=== PATIENT | female | born 1985 | race African-American/Black ===

== ENCOUNTER 2017-07-09 20:04 | Emergency (ER) | payer SELFPAY ==
[2017-07-09 20:26] LABS: Bilirubin Negative (Negative); Blood, Urine Negative (Negative); Glucose, Urine (Dipstick) Negative (Negative); Ketone, Urine Negative (Negative); Nitrite Negative (Negative); Protein, Urine (Dipstick) Negative (Neg-Trace); Urobilinogen 0.2 mg/dL (0.2-1.0)
[2017-07-09 20:53] LABS: #Lymphocytes 1.9 thou/uL (1.20-3.40); #Monocytes 0.5 thou/uL (0.11-0.59); #Neutrophils 2.5 thou/uL (1.40-6.50); %Basophils 0.4 % (0.0-1.0); %Eosinophils 0.9 % (0.0-10.0); %Lymphocytes 38.1 % (21.0-51.0); %Monocytes 10.5 % (0.0-10.0); Hematocrit 40.7 % (36.0-47.0); Red Blood Cell (RBC) Count 4.21 mill/uL (4.20-5.40); White Blood Cell (WBC) Count 4.9 thou/uL (4.8-10.8)
[2017-07-09 21:15] LABS: ALT (SGPT) 10 U/L (8-55); AST (SGOT) 15 U/L (5-34); Alkaline Phosphatase 50 U/L (40-150); Anion Gap 10 mmol/L (10-20); BUN (Urea Nitrogen) 10 mg/dL (7.0-18.7); Bilirubin, Total 0.6 mg/dL (0.2-1.2); Calc. Creatinine Clearance 0 mL/min (70-130); Calcium 9.1 mg/dL (7.8-10.44); Carbon Dioxide 28 mmol/L (22-29); Chloride 102 mmol/L (98-107); Estimated GFR-MDRD Greater than 90; Globulin 3.4 g/dL (2.4-3.5); Lipase 25 U/L (8-78); Protein, Total 7.3 g/dL (6.0-8.3)
[2017-07-09] MEDS ORDERED: Ketorolac Tromethamine 60 MG/2 ML VIAL ONE (22:30)
== END 2017-07-09 23:00 | disposition home or self-care (01) ==
LOC: ERS 20:04
DX: M54.5 Low back pain (principal)
CPT/HCPCS: 36415; 80053; 81003; 81025; 83690; 85025; 96372; J1885

== ENCOUNTER 2017-08-28 03:23 | Emergency (ER) | payer SELFPAY ==
[2017-08-28] MEDS ORDERED: Lidocaine 1% PF 5 ML VIAL ONE (03:37)
[2017-08-28] MEDS ORDERED: Bupivacaine 0.5% 10 ML VIAL ONE (03:37)
[2017-08-28] MEDS ORDERED: Bacitracin Zinc 1 Packet ONE (04:45)
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
== END 2017-08-28 05:12 | disposition home or self-care (01) ==
LOC: ERS 03:23
DX: S61.217A Laceration without foreign body of left little finger without damage to nail, initial encounter (principal); S61.215A Laceration without foreign body of left ring finger without damage to nail, initial encounter; S61.213A Laceration without foreign body of left middle finger without damage to nail, initial encounter; W26.0XXA Contact with knife, initial encounter
CPT/HCPCS: 12002; J2001; J3490

== ENCOUNTER 2017-09-15 00:48 | Emergency (ER) | payer SELFPAY | END 2017-09-15 01:26 | disposition left against medical advice (07) | LOC: ERS 00:48 | DX: Z53.21 Procedure and treatment not carried out due to patient leaving prior to being seen by health care provider (principal) ==

== ENCOUNTER 2017-12-06 00:29 | Emergency (ER) | payer SELFPAY ==
[2017-12-06] MEDS ORDERED: Dicyclomine 20 MG TAB ONE (01:30)
[2017-12-06] MEDS ORDERED: Ondansetron ODT 4 MG TAB ONE (01:31)
== END 2017-12-06 01:41 | disposition home or self-care (01) ==
LOC: ERS 00:29
DX: R10.13 Epigastric pain (principal); F32.9 Major depressive disorder, single episode, unspecified
CPT/HCPCS: 99283; Q0162

== ENCOUNTER 2018-06-14 13:46 | Emergency (ER) | payer SELFPAY ==
[2018-06-14] MEDS ORDERED: ISOVUE-370 76%-LOCM 1 ML ONE (14:34)
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
[2018-06-14] MEDS ORDERED: Morphine 4 MG/ML VIAL ONE (14:55)
[2018-06-14 14:59] LABS: #Lymphocytes 1.5 thou/uL (1.20-3.40); #Monocytes 0.4 thou/uL (0.11-0.59); #Neutrophils 1.3 thou/uL (1.40-6.50); %Basophils 1.4 % (0.0-1.0); %Eosinophils 0.8 % (0.0-10.0); %Lymphocytes 45.8 % (21.0-51.0); %Monocytes 11.4 % (0.0-10.0); %Neutrophils 40.7 % (42.0-75.0); Hemoglobin 13.2 g/dL (12.0-16.0); Mean Corpuscular HGB CONC 32.3 g/dL (32.0-36.0); Mean Corpuscular Hemoglobin 30.4 pg (27.0-31.0); Mean Corpuscular Volume 93.9 fL (78.0-98.0); Mean Platelet Volume 6.7 fL (7.4-10.4); Platelet Count 190 thou/uL (130-400); RBC Distribution Width 11.4 % (11.5-14.5); Red Blood Cell (RBC) Count 4.36 mill/uL (4.20-5.40); White Blood Cell (WBC) Count 3.3 thou/uL (4.8-10.8)
--- NOTE | 2018-06-14 15:01 | RAD ---
PORTABLE CHEST: Date: 06/14/18 PROVIDED CLINICAL HISTORY: Back pain. FINDINGS: Cardiac and mediastinal silhouette is within normal limits. Lungs appear clear. No pleural fluid or p neumothorax apparent. The supine nature of this study limits sensitivity for detection of pleural flu id and pneumothorax. IMPRESSION: No evidence for an acute cardiopulmonary process. POS: [facility]
[2018-06-14 15:12] LABS: BHCG - Serum Negative (NEGATIVE); Pregs Control Background? CLEAR/WHITE (CLR/WHITE); Pregs Control Bar Appear? YES (CONTROL BAR)
[2018-06-14 15:21] LABS: ALT (SGPT) 11 U/L (8-55); AST (SGOT) 14 U/L (5-34); Albumin 4.1 g/dL (3.5-5.0); Alkaline Phosphatase 54 U/L (40-150); Anion Gap 10 mmol/L (10-20); BUN (Urea Nitrogen) 11 mg/dL (7.0-18.7); Bilirubin, Total 0.6 mg/dL (0.2-1.2); Calc. Creatinine Clearance 0 mL/min (70-130); Calcium 8.9 mg/dL (7.8-10.44); Carbon Dioxide 25 mmol/L (22-29); Chloride 108 mmol/L (98-107); Estimated GFR-MDRD Greater than 90; Globulin 3.2 g/dL (2.4-3.5); Glucose 86 mg/dL (70-105); Potassium 3.7 mmol/L (3.5-5.1); Protein, Total 7.3 g/dL (6.0-8.3); Sodium 139 mmol/L (136-145)
[2018-06-14] MEDS ORDERED: Ondansetron HCl/PF 4 MG/2 ML Vial ONE (16:05)
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
== END 2018-06-14 17:45 | disposition home or self-care (01) ==
LOC: ERS 13:46
DX: S16.1XXA Strain of muscle, fascia and tendon at neck level, initial encounter (principal); S20.219A Contusion of unspecified front wall of thorax, initial encounter; F32.9 Major depressive disorder, single episode, unspecified; F41.9 Anxiety disorder, unspecified; V43.92XA Unspecified car occupant injured in collision with other type car in traffic accident, initial encounter
CPT/HCPCS: 70450; 71045; 71260; 72125; 72170; 74177; 80053; 84703; 85025; 96361; 96374; 96375; J2270; J2405

== ENCOUNTER 2019-01-02 15:11 | Emergency (ER) | payer OTHER, SELFPAY ==
[2019-01-02 16:26] LABS: #Basophils 0.1 thou/uL (0.0-0.2); #Eosinphils 0.1 thou/uL (0.0-0.7); #Lymphocytes 1.8 thou/uL (1.20-3.40); #Monocytes 0.7 thou/uL (0.11-0.59); #Neutrophils 3.2 thou/uL (1.40-6.50); %Basophils 0.9 % (0.0-1.0); %Eosinophils 1.6 % (0.0-10.0); %Lymphocytes 31.2 % (21.0-51.0); %Monocytes 11.2 % (0.0-10.0); %Neutrophils 55.2 % (42.0-75.0); Hemoglobin 12.5 g/dL (12.0-16.0); Mean Corpuscular HGB CONC 32.4 g/dL (32.0-36.0); Mean Corpuscular Hemoglobin 30.7 pg (27.0-31.0); Mean Corpuscular Volume 94.8 fL (78.0-98.0); Mean Platelet Volume 7.2 fL (7.4-10.4); Platelet Count 183 thou/uL (130-400); RBC Distribution Width 11.5 % (11.5-14.5); Red Blood Cell (RBC) Count 4.07 mill/uL (4.20-5.40); White Blood Cell (WBC) Count 5.9 thou/uL (4.8-10.8)
[2019-01-02 16:43] LABS: ALT (SGPT) 12 U/L (8-55); AST (SGOT) 15 U/L (5-34); Albumin 4.1 g/dL (3.5-5.0); Alkaline Phosphatase 48 U/L (40-150); Anion Gap 7 mmol/L (10-20); BUN (Urea Nitrogen) 10 mg/dL (7.0-18.7); Bilirubin, Total 0.4 mg/dL (0.2-1.2); Calc. Creatinine Clearance 0 mL/min (70-130); Calcium 9.2 mg/dL (7.8-10.44); Carbon Dioxide 28 mmol/L (22-29); Chloride 103 mmol/L (98-107); Estimated GFR-MDRD Greater than 90; Globulin 3.1 g/dL (2.4-3.5); Glucose 65 mg/dL (70-105); Lipase 24 U/L (8-78); Potassium 3.8 mmol/L (3.5-5.1); Protein, Total 7.2 g/dL (6.0-8.3); Sodium 134 mmol/L (136-145)
[2019-01-02 16:51] LABS: Bilirubin Negative (Negative); Blood, Urine Moderate (Negative); Clarity CLOUDY (Clear); Glucose, Urine (Dipstick) Negative (Negative); Leukocyte Moderate (Negative); Nitrite Negative (Negative); Protein, Urine (Dipstick) Trace mg/dL (Neg-Trace); Specific Gravity, Urine 1.022 (1.002-1.036); pH, Urine 7.5 (5.0-9.0)
[2019-01-02 16:52] LABS: Bacteria/HPF Rare-Few HPF (None Seen); Hyaline Casts/LPF 0-3 HYALINE CAST LPF (0-3 Hyaline); Pathc Cast-AUWi Flag 0.81 (0-2.49); RBC/HPF 21-50 HPF (0-3); Squamous Epithelial 0-3 HPF (0-3)
--- NOTE | 2019-01-02 17:50 | ULT ---
ULTRASOUND PELVIC ULTRASOUND TRANSVAGINAL DOPPLER DUPLEX: 01/02/19 HISTORY: 33-year-old female with pelvic pain and vaginal bleeding. TECHNIQUE: Transabdominal transducer used to evaluate intrapelvic contents using the urinary bladder as an acous tic window. Endovaginal transducer used to visualize intrapelvic contents in greater detail. Color fl ow Doppler and Pulsed Doppler spectral waveform analysis of ovaries. FINDINGS: There is a intrauterine gestational sac containing an embryonic pole with crown-rump length of 0.4 cm corresponding to 6w 1d. Embryonic heart rate: 133 bpm. No subchorionic hemorrhage. Tiny amount of free fluid adjacent to left adnexa and adjacent to uterus. Bilateral ovaries appear wi thin normal limits, with blood flow demonstrated. No ovarian cyst identified. IMPRESSION: 1. Live first trimester intrauterine gestation estimated to be 6 weeks, 1 day gestational age. 2. No evidence of complications. HÉCTOR Marshall POS: [facility]
== END 2019-01-02 19:33 | disposition home or self-care (01) ==
LOC: ERS 15:11
DX: O20.9 Hemorrhage in early pregnancy, unspecified (principal); O99.341 Other mental disorders complicating pregnancy, first trimester; F41.9 Anxiety disorder, unspecified; F32.9 Major depressive disorder, single episode, unspecified; Z3A.01 Less than 8 weeks gestation of pregnancy
CPT/HCPCS: 36415; 76856; 80053; 81003; 81015; 83690; 84702; 85025

== ENCOUNTER 2020-04-10 08:14 | Emergency (ER) | payer OTHER, SELFPAY ==
[2020-04-10] MEDS ORDERED: Ketorolac Tromethamine 30 MG/ML VIAL ONE (08:49)
== END 2020-04-10 09:18 | disposition home or self-care (01) ==
LOC: ERS 08:14
DX: S16.1XXA Strain of muscle, fascia and tendon at neck level, initial encounter (principal); F41.9 Anxiety disorder, unspecified; F32.9 Major depressive disorder, single episode, unspecified; X58.XXXA Exposure to other specified factors, initial encounter
CPT/HCPCS: 93005; 96372; J1885

== ENCOUNTER 2021-11-16 18:55 | Emergency (ER) | payer SELFPAY ==
[2021-11-16] MEDS ORDERED: predniSONE 20 MG TAB ONE ×2 (20:46→20:48)
[2021-11-16] MEDS ORDERED: Famotidine 20 MG TAB ONE (20:46)
== END 2021-11-16 20:53 | disposition home or self-care (01) ==
LOC: ERS 18:55
DX: L50.1 Idiopathic urticaria (principal)
CPT/HCPCS: 99282; J7512

== ENCOUNTER 2022-05-16 12:13 | Emergency (ER) | payer SELFPAY | END 2022-05-16 13:00 | disposition home or self-care (01) | LOC: ERS 12:13 | DX: I88.9 Nonspecific lymphadenitis, unspecified (principal); F17.210 Nicotine dependence, cigarettes, uncomplicated | CPT/HCPCS: 99283 ==